=== PATIENT | male | born 1990 | race African-American/Black ===

== ENCOUNTER 2021-07-05 01:03 | Emergency (ER) | payer SELFPAY ==
[~2021-07-05] VITALS: Ht 180.3 cm; Wt 95.0 kg
[2021-07-05 01:12] VITALS: BP 114/69
== END 2021-07-05 02:15 | disposition left against medical advice (07) ==
LOC: ER 01:03
DX: Z53.21 Procedure and treatment not carried out due to patient leaving prior to being seen by health care provider (principal)